=== PATIENT | male | born 1980 | race Caucasian/White ===

== ENCOUNTER 2019-11-21 16:58 | Emergency (ER) | payer SELFPAY ==
[2019-11-21 17:03] VITALS: BP 158/98; PULSE 107; RESP 17; TEMP 36.9; O2SAT 98
--- NOTE | 2019-11-21 17:52 | ED.GENADULT ---
HPI - General Adult General Chief complaint: Eye Problems <Jef Vazquez PA-C - Last Filed: 11/21/19 18:07> Stated complaint: FB left eye <Jef Vazquez PA-C - Last Filed: 11/21/19 18:07> Time Seen by Provider: 11/21/19 17:03 <Jef Vazquez PA-C - Last Filed: 11/21/19 18:07> Source: patient <Jef Vazquez PA-C - Last Filed: 11/21/19 18:07> Mode of arrival: ambulatory <Jef Vazquez PA-C - Last Filed: 11/21/19 18:07> Limitations: no limitations <Jef Vazquez PA-C - Last Filed: 11/21/19 18:07> History of Present Illness HPI narrative: Patient is a 39-year-old male who presents to emergency department for evaluation of foreign body to the left eye that occurred 4 days ago while grinding patient notes since he has developed blurred vision with left conjunctival injection clear discharge. Patient notes his tetanus is up-to-date. Patient denies fever chills URI symptoms sick contacts or recent illness and has not taken anything for his symptoms <Jef Vazquez PA-C - Last Filed: 11/21/19 18:07> Related Data Home medications: Home Medications Medication Instructions Recorded Confirmed No Home Medications 11/21/19 11/21/19 <Jef Vazquez PA-C - Last Filed: 11/21/19 18:07> Allergies/adverse reactions: Allergies Allergy/AdvReac Type Severity Reaction Status Date / Time No Known Allergies Allergy Verified 11/21/19 18:03 <Jef Vazquez PA-C - Last Filed: 11/21/19 18:07> Review of Systems Review of Systems: All systems reviewed & are unremarkable except as noted in HPI and below <Jef Vazquez PA-C - Last Filed: 11/21/19 18:07> [facility] Social History Social History: Social History (Updated 11/21/19 @ 17:53 by Jef Vazquez PA-C) Smoking status: Current every day smoker Gender identity (if verbalized by the patient): Male <Jef Vazquez PA-C - Last Filed: 11/21/19 18:07> Exam Narrative: Exam Narrative: GENERAL: Well-appearing, well-nourished, and in no acute distress. HEAD: Normocephalic, atraumatic. EYES: PERRLA and EOMI. left eye with haziness conjunctival injection clear discharge with small foreign body over the pupil ENT: Nares clear, no rhinorrhea or epistaxis. Mucous membranes moist. CHEST: Clear to auscultation. No respiratory distress. No wheezes rales or rhonchi HEART: Regular rate and rhythm. No murmur heard. Normal peripheral pulses. ABDOMEN: Soft, nontender, nondistended, normal active bowel sounds. EXTREMITIES: Normal range of motion. No edema. SKIN: Warm, dry, no rash. NEURO: No focal deficits. Alert and oriented x3. Cranial nerves II through XII grossly intact PSYCH: Normal mood and affect. <JOHNY Mejia Last Filed: 11/21/19 18:07> Course Consultations Consultation #1: Discussed case with [facility] ophthalmology who has an appointment set up for Friday at 9 AM in clinic for the patient <JOHNY Mejia Last Filed: 11/21/19 18:07> Date: 11/21/19 <JOHNY Mejia Last Filed: 11/21/19 18:07> Time: 18:05 <JOHNY Mejia Filed: 11/21/19 18:07> Vital Signs Vital signs: Vital Signs Temperature 36.9 C 11/21/19 17:03 Pulse Rate 107 H 11/21/19 17:03 Respiratory Rate 17 11/21/19 17:03 Blood Pressure 158/98 H 11/21/19 17:03 Pulse Oximetry 98 11/21/19 17:03 Temperature 36.9 C 11/21/19 17:03 Pulse Rate 107 H 11/21/19 17:03 Respiratory Rate 17 11/21/19 17:03 Blood Pressure 158/98 H 11/21/19 17:03 Pulse Oximetry 98 11/21/19 17:03 <JOHNY Mejia Filed: 11/21/19 18:07> Vital Signs Temperature 36.9 C 11/21/19 17:03 Pulse Rate 107 H 11/21/19 17:03 Respiratory Rate 17 11/21/19 17:03 Blood Pressure 158/98 H 11/21/19 17:03 Pulse Oximetry 98 11/21/19 17:03 Temperature 36.9 C 11/21/19 17:03 Pulse Rate 107 H 11/21/19 17:03 Respiratory Rate 17 11/20
== END 2019-11-21 18:17 | disposition home or self-care (01) ==
PROVIDERS: Emergency Provider Emergency Medicine
DX: T15.02XA Foreign body in cornea, left eye, initial encounter (principal); W22.8XXA Striking against or struck by other objects, initial encounter
CPT/HCPCS: 65220; 99283; A9270